=== PATIENT | female | born 1955 | race Caucasian/White ===

== ENCOUNTER → 2018-09-27 | Outpatient (CLI) | payer BC ==
--- NOTE | 2018-09-28 09:32 | CT ---
EXAM DESCRIPTION: CT ABDOMEN AND PELVIS WITH CONTRAST CLINICAL HISTORY: R10.30 LOWER ABD PAIN COMPARISON: None Available. TECHNIQUE: CT of the abdomen and pelvis are performed during IV bolus administration of routine adult dose of nonionic iodinated IV contrast. Oral contrast media is administered as well. FINDINGS: In the lower chest, the lung bases are clear except for minimal linear scarring or discoid atelectasis in lingula and right middle lobe. Heart size is prominent. CT abdomen Duodenal diverticula are present in the region of the head and uncinate process of the pancreas. No calcified stones in the gallbladder. Otherwise the liver, spleen, pancreas, gallbladder, adrenal glands, stomach and kidneys are unremarkable in appearance. No inflammation around the pancreas. No renal stones or hydronephrosis. No bowel dilatation to suggest obstruction. No free air or free fluid. CT pelvis Appendix is surgically absent with metallic clips in the right false pelvis. No inflammation around the cecum or terminal ileum or sigmoid colon. Prominent vessels to the sigmoid colon are noted. No sigmoid colonic wall thickening or pericolonic inflammatory strandy changes. Lymph nodes are mildly prominent in the sigmoid colonic mesentery. Extensive sigmoid diverticulosis is present without other changes to suggest acute diverticulitis. Bladder and distal ureters are negative for stones. Normal enhancement of pelvic vessels. No inguinal or lower pelvic adenopathy. Uterus and ovaries are not seen, evidently surgically absent. Bone window images are negative for fracture or lytic lesion. Coronal and sagittal reformatted images confirm the findings. IMPRESSION: No acute upper abdominal process. Sigmoid diverticulosis without acute appearing inflammation to suggest diverticulitis. This exam was performed according to our departmental dose-optimization program, which includes automated exposure control, adjustment of the mA and/or kV according to patient size and/or use of iterative reconstruction technique. Total DLP equals 888.26 mGycm. Electronically signed by: Alejandro Hernandez MD 09/28/2018 9:29 AM HEARING AID ASSISTANT
== END ==
LOC: CT 18:11
PROVIDERS: ATTEND General Practice
DX: R14.0 Abdominal distension (gaseous) (principal); K57.30 Diverticulosis of large intestine without perforation or abscess without bleeding; R10.30 Lower abdominal pain, unspecified

== ENCOUNTER → 2020-01-19 | Outpatient (CLI) | payer BC ==
--- NOTE | 2020-01-19 13:02 | RAD ---
EXAM DESCRIPTION: Hip,Right 2 Views CLINICAL HISTORY: PAIN IN RIGHT HIP COMPARISON: CT abdomen pelvis September 27, 2018. FINDINGS: 2 views of the right hip pain. There is subchondral lucency along the more lateral weightbearing surface of the acetabulum indicating advanced chondrosis/early osteoarthritic arthritis. The joint space is maintained. No fracture or aggressive bone lesion is demonstrated. Bone density appears within normal limits. 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 This has been present since the comparison CT from September 27, 2018. No acute bony pathology. Electronically signed by: Semaj Arriaga MD 01/19/2020 1:00 PM CDT
--- NOTE | 2020-01-19 14:03 | RAD ---
EXAM DESCRIPTION: Pelvis CLINICAL HISTORY: 64 years Female, HIP PAIN COMPARISON: January 19, 2020 Findings: One view(s)/radiograph(s) Mild bilateral hip osteoarthritis. No acute fracture or dislocation. No focal soft tissue swelling. Surgical clips overlie the right lower quadrant. IMPRESSION: No acute osseous abnormality in the pelvis. Electronically signed by: Aramis Sam MD 01/19/2020 2:01 PM CDT
== END ==
LOC: RAD 08:24
PROVIDERS: ATTEND Orthopaedic Surgery
DX: M16.11 Unilateral primary osteoarthritis, right hip (principal)